=== PATIENT | male | born 1965 | race Caucasian/White ===

== ENCOUNTER 2018-06-08 07:24 | Inpatient (IN) | payer BC, MEDICAID ==
[~2018-06-08] VITALS: Ht 162.6 cm; Wt 73.5 kg
[~2018-06-08 07:24] MED LIST: ASPI81TA27 PO; ATOR1TAB PO; CARV3.1240 PO; CLOP75TA28 PO; LISI2.5T47 PO
[2018-06-08] MEDS ORDERED: LIDOCAINE 2%HCL (LOCAL ANESTH.) INJ 20ML MDV ONE (09:17)
[2018-06-08] MEDS ORDERED: IODIXANOL 320MG/ML 100ML BTL IV ONE (09:17)
[2018-06-08] MEDS ORDERED: ANGIOMAX 250 MG VIAL IV ONE (09:21)
[2018-06-08] MEDS ORDERED: MIDAZOLAM HCL 1MG/1ML-2 ML VIAL ONE (09:21)
[2018-06-08] MEDS ORDERED: fentaNYL CITRATE 100 MCG/2 ML VL ONE (09:21)
[2018-06-08] MEDS ORDERED: SODIUM CHL 0.9% 50 ML ONE (09:21)
[2018-06-08] MEDS ORDERED: VERAPAMIL 2.5MG/ML INJ 2ML VIAL IV ONE (09:29)
[2018-06-08] MEDS ORDERED: PRASUGREL HCL 10 MG TAB ONE (10:37)
[2018-06-08] MEDS ORDERED: ASPirin 81 mg TAB PO ONE (10:45)
[2018-06-08] MEDS ORDERED: PRASUGREL HCL 10 MG TAB PO ONE (10:45)
[2018-06-08] MEDS ORDERED: ONDANSETRON HCL 4 MG/2 ML VIAL IV PRN (11:00)
[2018-06-08] MEDS ORDERED: HYDROcodone-ACET 5/325MG TAB PO PRN (11:00)
[2018-06-08] MEDS ORDERED: ACETAMINOPHEN 500 MG TAB PO PRN (11:00)
[2018-06-08] MEDS ORDERED: NITROGLYCERIN 0.4 MG SL TAB SL PRN (11:00)
[2018-06-08] MEDS ORDERED: MORPHINE SULFATE 4 MG/ML SYR/VIAL IV PRN (11:00)
[2018-06-08] MEDS ORDERED: hydrALAZINE HCL 20 MG/ML VL IV PRN (12:00)
[2018-06-08 16:00] VITALS: BP 156/94
[2018-06-08 16:22] VITALS: BP 156/94
[2018-06-08] MEDS ORDERED: ATORVASTATIN 20 MG TAB PO SCH (22:00)
[2018-06-08] MEDS: CARVEDILOL 3.125 MG TAB PO SCH (22:17)
[2018-06-08 22:24] VITALS: BP 119/63
[2018-06-09 05:59] VITALS: BP 113/59
[2018-06-09 09:00] VITALS: BP 114/64
[2018-06-09] MEDS: CARVEDILOL 3.125 MG TAB PO SCH (09:23)
[2018-06-09] MEDS ORDERED: ASPirin-EC 81 mg tab PO SCH (10:00)
[2018-06-09] MEDS ORDERED: CLOPIDOGREL BISULFATE 75 MG TAB PO SCH (10:00)
[2018-06-09] MEDS ORDERED: LISINOPRIL 5 MG TAB PO SCH (10:00)
[2018-06-09 12:17] VITALS: BP 114/64
[2018-06-09 13:01] VITALS: BP 116/62
== END 2018-06-09 12:50 | disposition home or self-care (01) | DRG 247 ==
LOC: CATH 07:24 → TELE-CENTR 07:25
PROVIDERS: ADMIT Internal Medicine; ATTEND Internal Medicine
PROC: 027035Z Dilation of Coronary Artery, One Artery with Two Drug-eluting Intraluminal Devices, Percutaneous Approach (ICD-10-PCS; principal; 2018-06-08)
PROC: X2C0361 Extirpation of Matter from Coronary Artery, One Artery using Orbital Atherectomy Technology, Percutaneous Approach, New Technology Group 1 (ICD-10-PCS; 2018-06-08)
PROC: B2111ZZ Fluoroscopy of Multiple Coronary Arteries using Low Osmolar Contrast (ICD-10-PCS; 2018-06-08)
DX: I25.10 Atherosclerotic heart disease of native coronary artery without angina pectoris (principal); I10 Essential (primary) hypertension; I25.2 Old myocardial infarction
CPT/HCPCS: 92933; 99152; A6257; C1874; J2250; Q9967